=== PATIENT | female | born 1945 | race Caucasian/White ===

== ENCOUNTER → 2024-04-11 06:34 | Outpatient (REF) | payer MEDICARE, BC, SELFPAY | LOC: MRI 06:34 | PROVIDERS: ATTENDING PHYSICIAN Orthopaedic Surgery; FAMILY PHYSICIAN Family Medicine | DX: M25.551 Pain in right hip (principal) | CPT/HCPCS: 73721 ==

== ENCOUNTER → 2024-10-13 10:26 | Outpatient (REF) | payer MEDICARE, BC, SELFPAY | LOC: RAD 10:26 | PROVIDERS: ATTENDING PHYSICIAN Student in an Organized Health Care Education/Training Program; FAMILY PHYSICIAN Family Medicine | DX: M54.9 Dorsalgia, unspecified (principal) | CPT/HCPCS: 71101 ==